=== PATIENT | male | born 1975 | race Caucasian/White ===

== ENCOUNTER → 2021-06-08 | Day surgery (SDC) | payer OTHER ==
[~2021-06-08] MED LIST: EPINEPHrine 1 MG/ML AMP ONE; FLU VACC QS2021-22(6MOS UP)/PF 60 MCG/0.5 ML SYRINGE IM ONE; Lidocaine 1% PF 5 ML VIAL ONE; Sodium Bicarbonate 2.5 MEQ/5 ML VIAL ONE
[2021-06-08 14:05] VITALS: BMI 43.2
[2021-06-08 14:06] VITALS: BP 135/86; TEMP 98.4
== END ==
LOC: CSHRAD 12:02
PROVIDERS: ATTEND Neurological Surgery
DX: M54.16 Radiculopathy, lumbar region (principal); M51.36 Other intervertebral disc degeneration, lumbar region
CPT/HCPCS: 62304; 72120; 72132; J0171